=== PATIENT | female | born 1980 | race Caucasian/White ===

== ENCOUNTER 2018-03-12 13:53 | Emergency (ER) | payer OTHER ==
[2018-03-12] MEDS ORDERED: EPINEPHrine 1 MG/ML INJ IM ONE (14:09)
[2018-03-12] MEDS ORDERED: RANITIDINE 50 MG/2 ML VIAL IVP ONE (14:09)
[2018-03-12] MEDS ORDERED: methylPREDNISolone SOD SUCC 125 MG/2 ML VIAL IVP ONE (14:09)
[2018-03-12] MEDS ORDERED: NS 500 ML IV ONE (14:09)
--- NOTE | 2018-03-12 14:09 | EDPHY ---
H & P Time Seen by Provider: 03/12/18 13:57 HPI/ROS: HPI Allergic reaction. 37-year-old female by private vehicle with a co-worker. 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 She has a shellfish allergy. She reports that she ordered some lunch out from a restaurant. This included chicken wraps and some salad. She reports shortly after eating this she developed a sensation of tightness and scratchiness in her throat as well as shortness of breath. She reports she was given intramuscular epinephrine, 1 cc of 1-1000 epinephrine at her work place. She also received 50 mg of intramuscular Benadryl. She has not had any change in her symptoms. She states that she did not feel the effects of the epinephrine as she has in the past. Currently she still complains of a sensation of scratchiness and tightness in her throat and flushing in her face. ROS: Constitutional: No fever, no chills. As above. Eyes: No discharge. No changes in vision. ENT: No sore throat. No nasal congestion or rhinorrhea. As above. Respiratory: No cough. No shortness of breath. As above. Cardiac: No chest pain, no palpitations. Gastrointestinal: No abdominal pain, no vomiting, no diarrhea. Genitourinary: No hematuria. No dysuria or increased frequency with urination. Musculoskeletal: No back pain. No neck pain. No myalgias or arthralgias. Skin: No rashes. Neurological: No headache. No focal weakness or altered sensation. Past medical history: Depression. As above. Social history: Nonsmoker. No alcohol. Here with her friend. As above. Physical Exam: General Appearance: Alert, mildly anxious, no distress. This patient is responding to questions appropriately and in full sentences. This patient appears well-hydrated and well-nourished. Generalized flushing in her face. No facial edema. Eyes: Pupils equal and round no pallor or injection. No lid edema, erythema or injection. ENT, Mouth: Mucous membranes are moist. The pharyngeal tissues are unremarkable. No edema or swelling. No asymmetry suggestive of abscess. No erythema or exudates. No stridor on auscultation of her neck. No voice changes. Respiratory: There are no retractions, lungs are clear to auscultation with good air movement bilaterally. No tachypnea. Cardiovascular: Regular rate and rhythm. No murmur. Neurological: Motor sensory function is grossly intact. Cranial nerves are normal. Gait is normal. Skin: Warm and dry, no rashes. Musculoskeletal: Neck is supple and nontender. Extremities are symmetrical. All joints range without pain or impingement. Psychiatric: No agitation. No depression. Database: EKG: Imaging: Procedures: Emergency department course: Triage vital signs reviewed and are normal. IV was placed. She was started on IV normal saline with 500 cc to be given over the next hour. She will be given 25 mg of IV Benadryl, 50 mg of IV ranitidine, 125 mg of IV Solu-Medrol and 300 mcg of intramuscular epinephrine. 2:45 p.m., patient re-evaluated. Vital signs reviewed and are normal. surveillance system monitor shows a narrow complex sinus rhythm with ventricular rate of 79. No stridor on auscultation of her neck. Repeat pharyngeal exam is unchanged from prior. No voice changes. Lungs are clear. 3:05 p.m., patient resting comfortably at this time. She states that she is feeling much better. Vital signs reviewed and are normal. Repeat pharyngeal exam is unchanged from prior and is unremarkable. No stridor on auscultation of her neck. No voice changes. Her lungs are clear to auscultation bilaterally. No tachypnea. She feels comfortable going home with her who is present in the room. I feel she is safe for discharge. I will prescribe her short course of steroids as well as continued antihistamines. Return to emergency department precautions and follow-up was discussed with her. All of her questions were answered. The patient was discharged home in good condition with her . Differential Diagnosis: The differential diagnosis on this patient includes but is not limited to allergic reaction. Anaphylactic shock, anaphylactoid reaction unlikely. This represents a partial list of diagnoses considered. These considerations are based on history, physical exam, past history, reassessment and diagnostic testing. Smoking Status: Never smoked Constitutional: Initial Vital Signs Temperature (C) 37.0 C 03/12/18 13:54 Heart Rate 87 03/12/18 13:54 Respiratory Rate 18 03/12/18 13:54 Blood Pressure 134/90 H 03/12/18 13:54 O2 Sat (%) 95 03/12/18 13:54 O2 Delivery Mode Room Air Allergies/Adverse Reactions: shellfish derived Allergy (Verified 03/12/18 13:58) Home Medications: Medication Instructions Recorded DIAZEPAM 03/12/18 Zoloft 25mg (*) 03/12/18 predniSONE [prednisone 20mg (RX)] 60 mg PO DAILY #9 tab 03/12/18 Medical Decision Making - Data Points Medications Given: Discontinued Medications Diphenhydramine HCl (Benadryl Injection) 25 mg IVP EDNOW ONE Stop: 03/12/18 14:10 Last Admin: 03/12/18 14:25 Dose: 25 mg Epinephrine HCl (Epinephrine) 0.3 mg IM EDNOW ONE Stop: 03/12/18 14:10 Last Admin: 03/12/18 14:25 Dose: 0.3 mg Sodium Chloride (Ns) 500 mls @ 0 mls/hr IV ONCE ONE; Wide Open PRN Reason: Protocol Stop: 03/12/18 14:10 Last Admin: 03/12/18 14:24 Dose: 500 mls Methylprednisolone Sodium Succinate (Solu-Medrol) 125 mg IVP EDNOW ONE Stop: 03/12/18 14:10 Last Admin: 03/12/18 14:25 Dose: 125 mg Ranitidine HCl (Zantac) 50 mg IVP EDNOW ONE Stop: 03/12/18 14:10 Last Admin: 03/12/18 14:25 Dose: 50 mg Departure - Departure Disposition: Home, Routine, Self-Care Clinical Impression: Allergic reaction Condition: Good Instructions: General Allergic Reaction (ED) Additional Instructions: Read and follow provided instructions. Follow-up with your primary care physician in 1-2 days for re-evaluation. Take medication as prescribed. Benadryl: 50 mg every 6-8 hours for the next 1-2 days. Pepcid: 20-40 mg twice daily for the next 2 days. These medications can be obtained [id number]. Return to the emergency department for worsening symptoms, sensation of tightness in your throat, difficulty breathing, facial swelling, or other serious concerns. Referrals: Brian Barboza MD [Primary Care Provider] - As per Instructions Prescriptions: predniSONE [prednisone 20mg (RX)] 60 mg PO DAILY #9 tab
[2018-03-12 15:27] VITALS: BP 103/69
== END 2018-03-12 15:26 | disposition home or self-care (01) ==
DX: T78.40XA Allergy, unspecified, initial encounter (principal); E86.9 Volume depletion, unspecified
CPT/HCPCS: 96374; J0171; J1200; J2780; J2930